=== PATIENT | male | born 1965 | race Caucasian/White ===

== ENCOUNTER → 2023-05-14 07:44 | Outpatient (REF) | payer OTHER, SELFPAY | LOC: DHCBC/DCA 07:44 | PROVIDERS: ATTENDING PHYSICIAN Nurse Practitioner; FAMILY PHYSICIAN Family Medicine | DX: E78.2 Mixed hyperlipidemia (principal); I25.10 Atherosclerotic heart disease of native coronary artery without angina pectoris; I10 Essential (primary) hypertension; E11.9 Type 2 diabetes mellitus without complications | CPT/HCPCS: 78452; 93017; A9500; J2785 ==